=== PATIENT | male | born 1980 ===

== ENCOUNTER 2017-07-07 12:37 | Emergency (ER) | payer SELFPAY ==
--- NOTE | 2017-07-07 12:59 | Emergency Department Report ---
<REG LÓPEZ - Last Filed: 07/07/17 15:40> ED Head Trauma HPI - General Chief complaint: Multiple Trauma Stated complaint: HEAD LACERATION sp tree branch falling on him; witness denies LOC Time Seen by Provider: 07/07/17 12:54 - Related Data Previous Rx's Medication Instructions Recorded Last Taken Type Cephalexin [Keflex] 500 mg PO Q12HR #20 cap 07/07/17 Unknown Rx traMADol [Ultram] 50 mg PO Q6HR PRN #10 tablet 07/07/17 Unknown Rx Allergies/Adverse reactions: Allergies Allergy/AdvReac Type Severity Reaction Status Date / Time No Known Allergies Allergy Unverified 07/07/17 12:49 ED Review of Systems ROS: Stated complaint: HEAD LACERATION Other details as noted in HPI ED Past Medical Hx - Medications Home Medications: Home Medications Medication Instructions Recorded Confirmed Last Taken Type Cephalexin [Keflex] 500 mg PO Q12HR #20 cap 07/07/17 Unknown Rx traMADol [Ultram] 50 mg PO Q6HR PRN #10 tablet 07/07/17 Unknown Rx ED Course Vital Signs 07/07/17 07/07/17 07/07/17 12:45 12:50 12:59 Temperature 98.2 F Pulse Rate 100 H Respiratory 18 15 Rate Blood Pressure 149/98 [Right] O2 Sat by Pulse 99 99 Oximetry - Lab Data Result diagrams: 07/07/17 13:31 07/07/17 13:31 Lab Results 07/07/17 07/07/17 07/07/17 Range/Units 13:31 13:31 13:31 WBC 13.5 H (4.5-11.0) K/mm3 RBC 5.04 H (3.65-5.03) M/mm3 Hgb 15.8 H (11.8-15.2) gm/dl Hct 47.3 H (35.5-45.6) % MCV 94 (84-94) fl MCH 31 (28-32) pg MCHC 33 (32-34) % RDW 12.5 L (13.2-15.2) % Plt Count 286 (140-440) K/mm3 Lymph % (Auto) 10.4 L (13.4-35.0) % Hopkins % (Auto) 5.8 (0.0-7.3) % Eos % (Auto) 0.7 (0.0-4.3) % Baso % (Auto) 0.4 (0.0-1.8) % Lymph # 1.4 (1.2-5.4) K/mm3 Hopkins # 0.8 (0.0-0.8) K/mm3 Eos # 0.1 (0.0-0.4) K/mm3 Baso # 0.0 (0.0-0.1) K/mm3 Seg Neutrophils % 82.7 H (40.0-70.0) % Seg Neutrophils # 11.2 H (1.8-7.7) K/mm3 PT 13.2 (12.2-14.9) Sec. INR 1.01 (0.87-1.13) Sodium 138 (137-145) mmol/L Potassium 4.2 (3.6-5.0) mmol/L Chloride 100.5 (98-107) mmol/L Carbon Dioxide 24 (22-30) mmol/L Anion Gap 18 mmol/L BUN 17 (9-20) mg/dL Creatinine 0.8 (0.8-1.5) mg/dL Estimated GFR > 60 ml/min BUN/Creatinine Ratio 21.25 % Glucose 99 (75-100) mg/dL Calcium 9.2 (8.4-10.2) mg/dL Total Bilirubin 0.40 (0.1-1.2) mg/dL AST 20 (5-40) units/L ALT 20 (7-56) units/L Alkaline Phosphatase 60 (35-129) units/L Total Protein 7.3 (6.3-8.2) g/dL Albumin 4.3 (3.9-5) g/dL Albumin/Globulin Ratio 1.4 % - Medical Decision Making I have seen and examined this patient myself. I agree with the PA or MACHINE CAPTAIN plan as discussed. 37-year-old male involved in traumatic injury from a large tree limb. Patient struck and had no LOC clearly concussion on arrival. Head CT next CT negative. Laceration of the pad repaired by PA. He was observed for 4 hours with clearing mental status. Alert and oriented 3. Patient might be discharged. Discussed the need for possible observation versus admission. Patient requested discharge. Gray López Critical care attestation.: If time is entered above; I have spent that time in minutes in the direct care of this critically ill patient, excluding procedure time. ED Disposition Clinical Impression: Mild TBI, Laceration, Abrasions of multiple sites, Shoulder contusion Disposition: - TO HOME OR SELFCARE Condition: Stable Instructions: Concussion (ED) Additional Instructions: sleeping in chair slightly elevated will minimize swelling expect swelling and bruising of face ice compresses keep wound clean and dry wash twice per day with soap and water keep wound covered with clean guaze meds as ordered today return to ER or PCP in approx 5-7 days for suture removal. heads heal quick we do not want over growth on sutures. motrin or tylenol for mild pain follow up pcp as needed if arm pain persists. head injury precautions- not to be alone this evening return to ER for altered level of conscious, seizures or other concerning symptoms. Referrals: LIANE NELSON MD [Staff Physician] - 3-5 Days <ZHANE LIN - Last Filed: 07/07/17 16:09> ED Head Trauma HPI - General Source: patient, family Mode of arrival: Wheelchair Limitations: No Limitations - History of Present Illness Complaint: head injury -: Sudden Mechanism of Injury: other (blunt head trauma) Location: parietal (r) Previous Trauma to this Area: No Place: home Severity: moderate Other Injuries: laceration Associated Symptoms: confusion. denies: amnesia, repetitive questioning, vision changes, nausea, vomiting, vertigo, syncope, numbness, weakness, tingling , neck pain ED Review of Systems Comment: Unobtainable due to pts medical conditions Constitutional: no symptoms reported, see HPI Eyes: as per HPI ENT: as per HPI Respiratory: no symptoms reported, see HPI Cardiovascular: as per HPI Endocrine: no symptoms reported Gastrointestinal: as per HPI Genitourinary: as per HPI Musculoskeletal: as per HPI Skin: as per HPI, other (large r head lac) Neurological: as per HPI, headache. denies: weakness Psychiatric: as per HPI. denies: anxiety, depression Hematological/Lymphatic: as per HPI. denies: easy bleeding ED Past Medical Hx - Past Medical History Previous Medical History?: No - Surgical History Past Surgical History?: No - Family History Family history: no significant - Social History Smoking Status: Current Every Day Smoker Substance Use Type: None ED Physical Exam - General Limitations: No Limitations General appearance: alert (oriented x 3), other (on admit appeared dazed. fam denied loc) - Head Head exam: Present: other (large lack to r parietal area) - Eye Eye exam: Present: EOMI - ENT ENT exam: Present: mucous membranes dry - Neck Neck exam: Present: normal inspection. Absent: tenderness - Respiratory Respiratory exam: Present: normal lung sounds bilaterally - Cardiovascular Cardiovascular Exam: Present: regular rate - GI/Abdominal GI/Abdominal exam: Present: soft - Rectal Rectal exam: Present: deferred - Extremities Exam Extremities exam: Present: normal inspection, full ROM, normal capillary refill , other (co r shoulder pain full rom). Absent: tenderness, pedal edema, joint swelling, calf tenderness - Back Exam Back exam: Present: normal inspection. Absent: full ROM, tenderness, CVA tenderness (R) - Neurological Exam Neurological exam: Present: alert, oriented X3, CN II-XII intact, normal gait. Absent: motor sensory deficit - Expanded Neurological Exam Expanded Neurological exam: Absent: memory loss-remote event, memory loss-recent event Patient oriented to: Present: person, place, time Speech: Present: fluid speech. Absent: receptive aphasia, expressive aphasia, total aphasia, anomia Cranial nerves: EOM's Intact: Normal, Gag Reflex: Normal, Tongue Deviation: Normal, Nystagmus: Normal, Facial Sensation: Normal, Facial Palsy with Forehead Movement: Normal, Facial Palsy without Forehead Movement: Normal Motor strength exam: RUE: 5, LUE: 5, RLE: 5, LLE: 5 Best Eye Response (Perley): (4) open spontaneously Best Motor Response (Keyanna): (6) obeys commands Best Verbal Response ([place]ley): (5) oriented [place]anna Total: 15 - Psychiatric Psychiatric exam: Present: other (appeared dazed on admit but oriented) - Skin Skin exam: Present: warm, other (lac as noted 6 inch) - Expanded Skin Exam Expanded Type of lesion: Present: laceration, abrasion 1 - lac 2 - abrasion 3 - abrasion 4 - abrasion ED Course - Reevaluation(s) Reevaluation #1: 07/07/17 to er sp cutting tree down and getting hit in head w branch abc intact large lack to r parietal skull eom intact no otor/rhin. no cspine tendernss a/o but dazed no loc per witness bleeding controlled co r a pain on secondary exam abrasions to r and l side of his face. abrasion to rue Reevaluation #2: 07/07/17 14:37 lac repaired without difficulty taking po updated on ct and poc 07/07/17 16:01 a/o x 4 fam at bedside - Laceration /Wound Repair r parietal head Wound Location: head Wound Length (cm): 18 Wound's Depth, Shape: linear, irregular, stellate, contused tissue Wound Explored: no foreign body removed Irrigated w/ Saline (ccs): 100 Betadine Prep?: Yes Anesthesia: Lidocaine w/ Epi Volume Anesthetic (ccs): 5 Wound Debrided: minimal Wound Repaired With: sutures Suture Size/Type: 4:0 Number of Sutures: 22 Layer Closure?: Yes Deep Layer Suture Size/Type: chromic Number Deep Layer Sutures: 2 Sterile Dressing Applied?: Yes - Lab Data Result diagrams: 07/07/17 13:31 07/07/17 13:31 Lab Results 07/07/17 07/07/17 07/07/17 Range/Units 13:31 13:31 13:31 WBC 13.5 H (4.5-11.0) K/mm3 RBC 5.04 H (3.65-5.03) M/mm3 Hgb 15.8 H (11.8-15.2) gm/dl Hct 47.3 H (35.5-45.6) % MCV 94 (84-94) fl MCH 31 (28-32) pg MCHC 33 (32-34) % RDW 12.5 L (13.2-15.2) % Plt Count 286 (140-440) K/mm3 Lymph % (Auto) 10.4 L (13.4-35.0) % Hopkins % (Auto) 5.8 (0.0-7.3) % Eos % (Auto) 0.7 (0.0-4.3) % Baso % (Auto) 0.4 (0.0-1.8) % Lymph # 1.4 (1.2-5.4) K/mm3 Hopkins # 0.8 (0.0-0.8) K/mm3 Eos # 0.1 (0.0-0.4) K/mm3 Baso # 0.0 (0.0-0.1) K/mm3 Seg Neutrophils % 82.7 H (40.0-70.0) % Seg Neutrophils # 11.2 H (1.8-7.7) K/mm3 PT 13.2 (12.2-14.9) Sec. INR 1.01 (0.87-1.13) Sodium 138 (137-145) mmol/L Potassium 4.2 (3.6-5.0) mmol/L Chloride 100.5 (98-107) mmol/L Carbon Dioxide 24 (22-30) mmol/L Anion Gap 18 mmol/L BUN 17 (9-20) mg/dL Creatinine 0.8 (0.8-1.5) mg/dL Estimated GFR > 60 ml/min BUN/Creatinine Ratio 21.25 % Glucose 99 (75-100) mg/dL Calcium 9.2 (8.4-10.2) mg/dL Total Bilirubin 0.40 (0.1-1.2) mg/dL AST 20 (5-40) units/L ALT 20 (7-56) units/L Alkaline Phosphatase 60 (35-129) units/L Total Protein 7.3 (6.3-8.2) g/dL Albumin 4.3 (3.9-5) g/dL Albumin/Globulin Ratio 1.4 % - Radiology Data Radiology results: report reviewed - Differential Diagnosis chi w or wo bleed sp blunt head trauma w lac - NEXUS Criteria Focal neurological deficit present: No Midline spinal tenderness present: No Altered level of consciousness: Yes Intoxication present: No Distracting injury present: No NEXUS results: C-Spine cannot be cleared clinically by these results. Imaging is required. ED Disposition Is pt being admited?: No Does the pt Need Aspirin: No Time of Disposition: 16:08
[2017-07-07] MEDS ORDERED: XYLOCAINE 1%/ EPI 1:100,000 INFILTRATI ONE (13:02)
--- NOTE | 2017-07-07 13:18 | Cat Scan Report ---
CT scan of head without IV contrast: History: Trauma, laceration, altered mental status. Findings: Ventricles are normal in size and midline in location. No acute ischemia, hemorrhage or mass. No extra-axial fluid collection. Normal brainstem and cerebellum. Impression: No acute intracranial abnormality.
--- NOTE | 2017-07-07 13:20 | Cat Scan Report ---
CT scan cervical spine: History: Trauma, laceration or mental status. Findings: The odontoid process and the lateral masses appears intact. Anterior and posterior arch of atlas occipital condyle appears normal. Normal height of vertebral bodies and intervertebral discs. Normal articular surfaces. No evidence of acute fracture. Normal prevertebral soft tissue. Impression: No evidence of acute fracture.
--- NOTE | 2017-07-07 13:46 | XRay Report ---
Right shoulder 2 views: History: Shoulder pain, trauma. Findings: Mild arthritic changes a.c. joint and glenohumeral joint. No fracture or dislocation. No soft tissue calcification. Old healed fracture distal right clavicle. Impression: No evidence of acute fracture or dislocation.
[2017-07-07] MEDS ORDERED: NACL 0.9% 500 ML IR ONE (13:56)
[2017-07-07 13:59] LABS: Basophils % (Auto) 0.4 % (0.0-1.8); Eosinophils % (Auto) 0.7 % (0.0-4.3); Hematocrit 47.3 % (35.5-45.6); Hemoglobin 15.8 gm/dl (11.8-15.2); Mean Corpuscular HGB Conc 33 % (32-34); Mean Corpuscular Hemoglobin 31 pg (28-32); Mean Corpuscular Volume 94 fl (84-94); Platelet Count 286 K/mm3 (140-440); Red Blood Count 5.04 M/mm3 (3.65-5.03); Red Cell Distribution Width 12.5 % (13.2-15.2); White Blood Count 13.5 K/mm3 (4.5-11.0)
[2017-07-07] MEDS ORDERED: NORCO 5/325 ONE (14:00)
[2017-07-07] MEDS ORDERED: NORCO 5/325 PO ONE (14:05)
[2017-07-07] MEDS ORDERED: NACL 0.9% IR ONE (14:05)
[2017-07-07 14:11] LABS: Alanine Aminotransferase 20 units/L (7-56); Albumin 4.3 g/dL (3.9-5); Albumin/Globulin Ratio 1.4 %; Alkaline Phosphatase 60 units/L (35-129); Anion Gap 18 mmol/L; BUN/Creatinine Ratio 21.25; Blood Urea Nitrogen 17 mg/dL (9-20); Calcium 9.2 mg/dL (8.4-10.2); Carbon Dioxide 24 mmol/L (22-30); Chloride 100.5 mmol/L (98-107); Glucose 99 mg/dL (75-100); Potassium 4.2 mmol/L (3.6-5.0); Sodium 138 mmol/L (137-145); Total Protein 7.3 g/dL (6.3-8.2)
[2017-07-07 14:16] LABS: INR 1.01 (0.87-1.13)
[2017-07-07] MEDS ORDERED: ROCEPHIN IM ONE (14:39)
[2017-07-07] MEDS ORDERED: XYLOCAINE 1% MPF 5 mL INFILTRATI ONE (14:39)
[2017-07-07] MEDS ORDERED: BOOSTRIX IM ONE (14:40)
[2017-07-07] MEDS ORDERED: WATER FOR INJ (PF) 10 ML ONE (16:19)
[2017-07-07 17:04] VITALS: BP 128/95
== END 2017-07-07 17:34 | disposition home or self-care (01) ==
LOC: ED 12:37
DX: S06.890A Other specified intracranial injury without loss of consciousness, initial encounter (principal); S01.01XA Laceration without foreign body of scalp, initial encounter; S40.011A Contusion of right shoulder, initial encounter; F17.200 Nicotine dependence, unspecified, uncomplicated; W20.8XXA Other cause of strike by thrown, projected or falling object, initial encounter; Y93.89 Activity, other specified; Y99.8 Other external cause status; Y92.098 Other place in other non-institutional residence as the place of occurrence of the external cause
CPT/HCPCS: 12035; 36415; 70450; 72125; 73030; 80053; 85025; 85610; 90471; 90715; 96372; 99284; J0696